=== PATIENT | male | born 1955 | race African-American/Black ===

== ENCOUNTER 2018-08-10 23:21 | Emergency (ER) | payer MEDICARE, MEDICAID ==
[~2018-08-10] VITALS: Ht 167.6 cm; Wt 80.5 kg
[~2018-08-10 23:21] MED LIST: AMLO5TAB4 PO; DOCU-186 PO; HYDR25TA6 PO; LISI40TA PO; LORA-247 PO; LOSA100T7 PO; METO-93 PO; TRAZ50TA66 PO
--- NOTE | 2018-08-10 23:37 | NUR ---
PROVIDED PT WITH FARSHAD
--- NOTE | 2018-08-10 23:57 | NUR ---
PT PRESENTED WITH C/O EDWARDS, ABD, CP AND COLD SYMPTOMS X PAST 2-3 DAYS. PT ALSO OUT OF HIS RX FOR BP X 4 DAYS. MONITORS APPLIED, SIDERAILS UP X2, CALL LIGHT WITHIN REACH. ENGINEER SECOND ASSISTANT AT BEDSIDE
[2018-08-11] MEDS ORDERED: ONDANSETRON ODT 4 MG PO ONE
[2018-08-11] MEDS ORDERED: MAALOX/HYOSCYAMINE/LIDOCAINE 45 ML BTL PO ONE
[2018-08-11 00:01] LABS: BASOPHILS # (AUTO) 0.07 x10^3/uL (0-0.1); BASOPHILS % (AUTO) 1 % (0-1); EOSINOPHILS # (AUTO) 0.08 x10^3/uL (0-0.4); EOSINOPHILS % (AUTO) 1 % (1-7); LYMPHOCYTES # (AUTO) 2.05 x10^3/uL (1-3.4); LYMPHOCYTES % (AUTO) 29 % (22-44); MD NO; MEAN CORPUSCULAR HGB CONC 32.7 g/dL (33.2-36.2); MEAN CORPUSCULAR VOLUME 94.7 fL (81-97); MEAN PLATELET VOLUME 7.8 fL (7.4-10.4); MONOCYTES # (AUTO) 0.56 x10^3/uL (0.2-0.8); MONOCYTES % (AUTO) 8 % (2-9); NEUTROPHILS # (AUTO) 4.24 x10^3/uL (1.8-6.8); NEUTROPHILS % (AUTO) 61 % (42-75); PLATELET COUNT 203 x10^3/uL (130-400); RED BLOOD COUNT 4.41 x10^6/uL (4.38-5.82); RED CELL DISTRIBUTION WIDTH 15.5 % (9.4-14.8)
[2018-08-11] MEDS ORDERED: MAALOX/HYOSCYAMINE/LIDOCAINE 45 ML BTL ONE (00:04)
[2018-08-11] MEDS ORDERED: ONDANSETRON ODT 4 MG ONE (00:05)
[2018-08-11 00:13] LABS: INTERNATIONAL NORMALIZED RATIO 1.02 (0.93-1.1); PROTHROMBIN TIME 10.8 Seconds (9.6-11.5)
[2018-08-11 00:15] LABS: ALANINE AMINOTRANSFERASE 27 U/L (12-78); ALBUMIN 3.3 g/dL (3.4-5.0); ANION GAP 6 mmol/L (5-15); CALCIUM 9.2 mg/dL (8.5-10.1); CHLORIDE 98 mmol/L (98-107); CREATININE 1.15 mg/dL (0.7-1.3)
[2018-08-11 00:17] LABS: ALKALINE PHOSPHATASE 81 U/L (45-117); TOTAL PROTEIN 8.7 g/dL (6.4-8.2)
[2018-08-11 00:19] LABS: TROPONIN I 0.034 ng/mL (0.000-0.045)
--- NOTE | 2018-08-11 00:23 | NUR ---
TASK RN: PT LAYING IN GURNEY, RESTLESS. BP/SPO2/ECG MONITORING IN PLACE. PT DENIES NEEDS AT THIS TIME
[2018-08-11 00:59] VITALS: BP 163/94
== END 2018-08-11 01:16 | disposition home or self-care (01) ==
LOC: ED 08-11 00:01
DX: J18.1 Lobar pneumonia, unspecified organism (principal); R11.2 Nausea with vomiting, unspecified; I10 Essential (primary) hypertension; Z76.0 Encounter for issue of repeat prescription; F17.200 Nicotine dependence, unspecified, uncomplicated
CPT/HCPCS: 36415; 71045; 80053; 83690; 84484; 85025; 85610; 85730; 93005; 99284; 99406; Q0162

== ENCOUNTER 2018-09-26 21:40 | Emergency (ER) | payer MEDICARE, MEDICAID ==
[~2018-09-26] VITALS: Ht 167.6 cm; Wt 82.0 kg
[~2018-09-26 21:40] MED LIST changes: +LOSA100T14 PO; -LOSA100T7 PO
[2018-09-26] MEDS ORDERED: ACETAMINOPHEN 500 MG TABLET PO ONE (22:00)
[2018-09-26] MEDS ORDERED: AMLODIPINE 5 MG TABLET PO ONE (22:00)
[2018-09-26] MEDS ORDERED: ACETAMINOPHEN 500 MG TABLET ONE (22:07)
[2018-09-26] MEDS ORDERED: AMLODIPINE 5 MG TABLET ONE (22:13)
--- NOTE | 2018-09-26 22:14 | NUR ---
MED PER ORDER, PT NEURO REMAINS INTACT.
--- NOTE | 2018-09-26 22:56 | NUR ---
PT SLEPEING QUIETLY, NAD AT THIS TIME. RESP RATE EVEN AND REGULAR, NSR MONITOR WITHOUT ECTOPY
[2018-09-26 23:02] VITALS: BP 192/107
--- NOTE | 2018-09-26 23:26 | NUR ---
PT REPORTS THAT HE IS FEELING BETTER AT THIS TIME, HEADACHE RESOLVED AWARE TO INCREASE PO FLUIDS AND TO GET RX FILLED TOMORROW AND MAKE AN APPOINTMENT WITH HIS DOCTOR.
== END 2018-09-26 23:36 | disposition home or self-care (01) ==
LOC: ED 23:00
DX: R51 Headache (principal); I10 Essential (primary) hypertension; Z91.14 Patient's other noncompliance with medication regimen; J45.909 Unspecified asthma, uncomplicated; F17.200 Nicotine dependence, unspecified, uncomplicated
CPT/HCPCS: 82962; 93005; 99283

== ENCOUNTER 2019-07-29 19:26 | Emergency (ER) | payer MEDICARE, MEDICAID ==
[~2019-07-29] VITALS: Ht 167.6 cm; Wt 69.0 kg
[2019-07-29 19:27] VITALS: BP 127/82
--- NOTE | 2019-07-29 19:36 | NUR ---
assessment made. ERP at bedside
--- NOTE | 2019-07-29 19:41 | NUR ---
patient ambulatory and disturbing the staff. security notified.
--- NOTE | 2019-07-29 19:50 | NUR ---
patient discharged by ERP. wheeled to de area. friend with patient states that he is going to call a cab. discharged with instruction. verbalized understanding.
== END 2019-07-29 19:53 | disposition home or self-care (01) ==
LOC: ED 19:30
DX: F10.129 Alcohol abuse with intoxication, unspecified (principal); Y90.9 Presence of alcohol in blood, level not specified
CPT/HCPCS: 99283

== ENCOUNTER 2019-07-30 16:03 | Emergency (ER) | payer MEDICARE, MEDICAID ==
[~2019-07-30] VITALS: Ht 167.6 cm; Wt 87.0 kg
--- NOTE | 2019-07-30 16:17 | NUR ---
ASSUMED CARE OF PATIENT. PATIENT BIB [facility] FOR LEFT SIDED CHEST PAIN 02/04. PT NOT SURE WHEN IT STARTED. PT REPORTS HE HAS BEEN DRINKING AND SMOKING MARIJUANA. FRIEND AT BEDSIDE. ACTUARY ON. NSR NOTED. VS STABLE. CALL LIGHT IN PLACE. WILL CONTINUE TO MONITOR.
--- NOTE | 2019-07-30 16:20 | NUR ---
PT DOES NOT KNOW THE NAME OF THEM MEDICATIONS HE TAKES.
[2019-07-30] MEDS ORDERED: ASPIRIN 81 MG TABLET CHEW PO ONE (16:30)
[2019-07-30] MEDS ORDERED: THIAMINE 100MG TABLET PO ONE (16:30)
[2019-07-30] MEDS ORDERED: THIAMINE 100MG TABLET ONE (16:35)
[2019-07-30] MEDS ORDERED: ASPIRIN 81 MG TABLET CHEW ONE (16:35)
[2019-07-30 16:46] LABS: BASOPHILS # (AUTO) 0.03 x10^3/uL (0-0.1); BASOPHILS % (AUTO) 1 % (0-1); EOSINOPHILS # (AUTO) 0.05 x10^3/uL (0-0.4); EOSINOPHILS % (AUTO) 1 % (1-7); LYMPHOCYTES # (AUTO) 2.57 x10^3/uL (1-3.4); LYMPHOCYTES % (AUTO) 41 % (22-44); MD NO; MEAN CORPUSCULAR HEMOGLOBIN 32.7 pg (27.5-34.5); MEAN CORPUSCULAR HGB CONC 33.1 g/dL (33.2-36.2); MEAN CORPUSCULAR VOLUME 98.7 fL (81-97); MEAN PLATELET VOLUME 6.8 fL (7.4-10.4); MONOCYTES # (AUTO) 0.31 x10^3/uL (0.2-0.8); MONOCYTES % (AUTO) 5 % (2-9); NEUTROPHILS # (AUTO) 3.31 x10^3/uL (1.8-6.8); NEUTROPHILS % (AUTO) 53 % (42-75); PLATELET COUNT 276 x10^3/uL (130-400); RED CELL DISTRIBUTION WIDTH 15.5 % (9.4-14.8)
[2019-07-30 16:53] LABS: ALBUMIN 3.5 g/dL (3.4-5.0); ANION GAP 5 mmol/L (5-15); CALCIUM 8.4 mg/dL (8.5-10.1); CHLORIDE 113 mmol/L (98-107)
[2019-07-30 16:57] LABS: TROPONIN I < 0.015 ng/mL (0.000-0.045)
--- NOTE | 2019-07-30 17:09 | NUR ---
PT VISITING WITH FRIEND IN ROOM. LEGAL RECEPTIONIST ON. NSR NOTED. CALL LIGHT IN PLACE. WILL CONTNIUE TO MONITOR.
--- NOTE | 2019-07-30 17:19 | NUR ---
DR CASTRO HAS UPDATED PATIENT. PATIENT TO BE DISCHARGED. VS STABLE. PT IS ABLE TO GET SELF DRESS AND AMBULATE AROUND ROOM SAFELY. FRIEND IS WITH PATIENT. PT DISCHARGED PER DR CASTRO.
[2019-07-30 17:30] VITALS: BP 124/75
--- NOTE | 2019-07-30 17:31 | NUR ---
NO REPEAT EKG PER DR CASTRO
== END 2019-07-30 17:33 | disposition home or self-care (01) ==
LOC: ED 17:10
DX: R07.89 Other chest pain (principal); I12.9 Hypertensive chronic kidney disease with stage 1 through stage 4 chronic kidney disease, or unspecified chronic kidney disease; N18.2 Chronic kidney disease, stage 2 (mild); F10.10 Alcohol abuse, uncomplicated; J45.909 Unspecified asthma, uncomplicated; F17.200 Nicotine dependence, unspecified, uncomplicated
CPT/HCPCS: 36415; 71045; 80048; 82040; 84484; 85025; 93005; 99284

== ENCOUNTER 2019-08-08 21:07 | Emergency (ER) | payer MEDICARE, MEDICAID ==
[~2019-08-08] VITALS: Ht 167.6 cm; Wt 80.3 kg
[2019-08-08 21:38] VITALS: BP 188/115
[2019-08-08] MEDS ORDERED: AMLODIPINE 5 MG TABLET ONE (21:43)
[2019-08-08 21:55] LABS: BASOPHILS # (AUTO) 0.04 x10^3/uL (0-0.1); BASOPHILS % (AUTO) 1 % (0-1); EOSINOPHILS # (AUTO) 0.05 x10^3/uL (0-0.4); EOSINOPHILS % (AUTO) 1 % (1-7); LYMPHOCYTES # (AUTO) 1.85 x10^3/uL (1-3.4); LYMPHOCYTES % (AUTO) 35 % (22-44); MD NO; MEAN CORPUSCULAR HEMOGLOBIN 32.1 pg (27.5-34.5); MEAN CORPUSCULAR HGB CONC 32.4 g/dL (33.2-36.2); MEAN CORPUSCULAR VOLUME 99.1 fL (81-97); MEAN PLATELET VOLUME 7.7 fL (7.4-10.4); MONOCYTES % (AUTO) 6 % (2-9); NEUTROPHILS # (AUTO) 3.02 x10^3/uL (1.8-6.8); NEUTROPHILS % (AUTO) 57 % (42-75); PLATELET COUNT 152 x10^3/uL (130-400); RED BLOOD COUNT 4.31 x10^6/uL (4.38-5.82); RED CELL DISTRIBUTION WIDTH 15.6 % (9.4-14.8)
--- NOTE | 2019-08-08 21:58 | NUR ---
REPORT RECEIVED FROM ANUJ STARKEY.
[2019-08-08] MEDS ORDERED: AMLODIPINE 5 MG TABLET PO ONE (22:00)
[2019-08-08 22:05] LABS: ANION GAP 11 mmol/L (5-15); CALCIUM 8.5 mg/dL (8.5-10.1); CHLORIDE 107 mmol/L (98-107); CREATININE 0.94 mg/dL (0.7-1.3)
[2019-08-08 22:06] LABS: ALANINE AMINOTRANSFERASE 38 U/L (12-78); ALBUMIN 3.8 g/dL (3.4-5.0)
[2019-08-08 22:08] LABS: ALKALINE PHOSPHATASE 71 U/L (45-117); BILIRUBIN,TOTAL 0.4 mg/dL (0.2-1.0); TOTAL PROTEIN 7.9 g/dL (6.4-8.2)
[2019-08-08] MEDS ORDERED: POTASSIUM CHLORIDE 20 MEQ TAB.ER.PRT ONE (22:42)
[2019-08-08] MEDS ORDERED: POTASSIUM CHLORIDE 20 MEQ TAB.ER.PRT PO ONE (23:00)
== END 2019-08-08 22:53 | disposition home or self-care (01) ==
LOC: ED 22:28
DX: F10.20 Alcohol dependence, uncomplicated (principal); Y90.9 Presence of alcohol in blood, level not specified; I10 Essential (primary) hypertension; J45.909 Unspecified asthma, uncomplicated; F17.200 Nicotine dependence, unspecified, uncomplicated
CPT/HCPCS: 36415; 80053; 80307; 83735; 85025; 99283

== ENCOUNTER 2019-08-09 21:31 | Emergency (ER) | payer MEDICARE, MEDICAID ==
[~2019-08-09] VITALS: Ht 167.6 cm; Wt 82.0 kg
--- NOTE | 2019-08-09 21:45 | NUR ---
EKG done. patient to X ray.
[2019-08-09] MEDS ORDERED: ASPIRIN 81 MG TABLET CHEW ONE (21:59)
[2019-08-09] MEDS ORDERED: ASPIRIN 81 MG TABLET CHEW PO ONE (22:00)
[2019-08-09 22:15] LABS: BASOPHILS # (AUTO) 0.02 x10^3/uL (0-0.1); BASOPHILS % (AUTO) 1 % (0-1); EOSINOPHILS # (AUTO) 0.11 x10^3/uL (0-0.4); EOSINOPHILS % (AUTO) 2 % (1-7); LYMPHOCYTES # (AUTO) 1.66 x10^3/uL (1-3.4); LYMPHOCYTES % (AUTO) 34 % (22-44); MD NO; MEAN CORPUSCULAR HEMOGLOBIN 32.4 pg (27.5-34.5); MEAN CORPUSCULAR VOLUME 98.2 fL (81-97); MONOCYTES # (AUTO) 0.24 x10^3/uL (0.2-0.8); MONOCYTES % (AUTO) 5 % (2-9); NEUTROPHILS # (AUTO) 2.89 x10^3/uL (1.8-6.8); NEUTROPHILS % (AUTO) 59 % (42-75); PLATELET COUNT 145 x10^3/uL (130-400)
[2019-08-09 22:27] LABS: ALANINE AMINOTRANSFERASE 39 U/L (12-78); ALBUMIN 3.8 g/dL (3.4-5.0); ANION GAP 10 mmol/L (5-15); CHLORIDE 106 mmol/L (98-107); CREATININE 1.12 mg/dL (0.7-1.3)
[2019-08-09 22:29] LABS: ALKALINE PHOSPHATASE 75 U/L (45-117); BILIRUBIN,TOTAL 0.5 mg/dL (0.2-1.0); TOTAL PROTEIN 7.8 g/dL (6.4-8.2); TROPONIN I 0.039 ng/mL (0.000-0.045)
--- NOTE | 2019-08-09 23:13 | NUR ---
Patient/Caregiver given discharge instructions and they have confirmed that they understand the instructions. Patient ambulatory with steady gait.
[2019-08-09 23:16] VITALS: BP 152/82
== END 2019-08-10 00:07 | disposition home or self-care (01) ==
LOC: ED 23:13
DX: R07.89 Other chest pain (principal); F10.229 Alcohol dependence with intoxication, unspecified; F17.210 Nicotine dependence, cigarettes, uncomplicated; I10 Essential (primary) hypertension; Y90.9 Presence of alcohol in blood, level not specified
CPT/HCPCS: 36415; 71046; 80053; 83880; 84484; 85025; 93005; 99284

== ENCOUNTER 2019-10-31 21:09 | Emergency (ER) | payer MEDICARE, MEDICAID ==
--- NOTE | 2019-10-31 21:17 | NUR ---
PT TAKEN TO BATHROOM BY BEATER ROOM SUPERVISOR WITH STANDBY ASSIST DUE TO LEVEL OF INTOXICATION.
--- NOTE | 2019-10-31 21:28 | NUR ---
PT ASSISTED BACK TO NURSES STATION, SEATED IN CHAIR WITHIN VIEW OF STAFF FOR SAFETY. PT TOO INTOXICATED TO CARE FOR SELF AND NO SITTERS AVAILABLE AT THIS TIME AND SUCH MULTIPLE STAFF MEMBERS ARE WATCHING PT FOR SAFETY
--- NOTE | 2019-10-31 22:00 | NUR ---
PT SLEEPING QUIETLY IN WHEELCHAIR WITHIN VIEW OF NURSES STATION FOR PT SAFETY.
--- NOTE | 2019-10-31 23:16 | NUR ---
NO CHANGES, SLEEPING QUIETLY, RESP RATE EVEN AND REGULAR, REMAINS WITHIN VIEW OF NURSES STATION FOR PT SAFETY
--- NOTE | 2019-11-01 00:03 | NUR ---
NO CHANGES, RESTING QUIETLY, AWAIT SOBRIETY FOR SAFE DISCHARGE.
--- NOTE | 2019-11-01 00:51 | NUR ---
NO CHANGES, SLEEPING QUIETLY, RESP RATE EVEN AND REGUALR, REMAINS IN CLOSE PROXIMITY TO NURSES STATION FOR SAFETY
--- NOTE | 2019-11-01 01:15 | NUR ---
SLEEPING QUIETLY, NAD, AWKANE FOR VS, AWAIT SOBRIETY FOR SAFE DISCHARGE.
[2019-11-01 01:35] VITALS: BP 132/79
--- NOTE | 2019-11-01 03:04 | NUR ---
AWAITING SOBRIETY FOR SAFE DISCHARGE
--- NOTE | 2019-11-01 04:09 | NUR ---
NO CHANGES, SLEEPING QUIETLY. AWAIT SOBRIETY FOR SAFE DISCHARGE
--- NOTE | 2019-11-01 05:02 | NUR ---
NO CHANGES, AWAIT SOBRIETY FOR SAFE DISCHARGE.
--- NOTE | 2019-11-01 06:17 | NUR ---
PT AWAKE, ALERT AND ORIENTED, AMBULATING WITH STEADY GAIT. CAB VOUCHER PROVIDED FOR SAFE DISCHARGE.
== END 2019-11-01 06:19 | disposition home or self-care (01) ==
LOC: ED 21:45
DX: F10.129 Alcohol abuse with intoxication, unspecified (principal); J45.909 Unspecified asthma, uncomplicated; I10 Essential (primary) hypertension; Y90.9 Presence of alcohol in blood, level not specified
CPT/HCPCS: 99283

== ENCOUNTER 2019-11-01 21:22 | Emergency (ER) | payer MEDICARE, MEDICAID ==
[~2019-11-01] VITALS: Ht 167.6 cm; Wt 85.0 kg
[2019-11-01 21:28] VITALS: BP 160/95
--- NOTE | 2019-11-02 01:36 | NUR ---
ASSUMED CARE OF PT, PT RESTING ON GURNEY RESPIRATIONS EVEN AND UNLABORED, FALL PRECAUTIONS IN PLACE.
--- NOTE | 2019-11-02 03:10 | NUR ---
ASSISTED PT TO RESTROOM, PT ABLE TO TOLERATE DRINKING WATER.
== END 2019-11-02 05:55 ==
LOC: ED 21:28
DX: S00.01XA Abrasion of scalp, initial encounter (principal); S09.90XA Unspecified injury of head, initial encounter; F10.120 Alcohol abuse with intoxication, uncomplicated; Z72.9 Problem related to lifestyle, unspecified; I10 Essential (primary) hypertension; F17.200 Nicotine dependence, unspecified, uncomplicated; Y90.9 Presence of alcohol in blood, level not specified; X58.XXXA Exposure to other specified factors, initial encounter; Y93.89 Activity, other specified; Y92.89 Other specified places as the place of occurrence of the external cause; Y99.8 Other external cause status
CPT/HCPCS: 36415; 70450; 80307; 99284

== ENCOUNTER 2019-11-04 08:25 | Emergency (ER) | payer MEDICARE, MEDICAID ==
[~2019-11-04] VITALS: Ht 167.6 cm; Wt 81.6 kg
[2019-11-04 08:32] VITALS: BP 116/78
[2019-11-04 09:38] LABS: BASOPHILS # (AUTO) 0.02 x10^3/uL (0-0.1); BASOPHILS % (AUTO) 0 % (0-1); EOSINOPHILS # (AUTO) 0.02 x10^3/uL (0-0.4); EOSINOPHILS % (AUTO) 0 % (1-7); LYMPHOCYTES # (AUTO) 1.12 x10^3/uL (1-3.4); LYMPHOCYTES % (AUTO) 17 % (22-44); MD NO; MEAN CORPUSCULAR HEMOGLOBIN 31.6 pg (27.5-34.5); MEAN CORPUSCULAR HGB CONC 33.2 g/dL (33.2-36.2); MEAN CORPUSCULAR VOLUME 95.1 fL (81-97); MEAN PLATELET VOLUME 7.2 fL (7.4-10.4); MONOCYTES # (AUTO) 0.35 x10^3/uL (0.2-0.8); MONOCYTES % (AUTO) 5 % (2-9); NEUTROPHILS % (AUTO) 77 % (42-75); PLATELET COUNT 204 x10^3/uL (130-400); RED BLOOD COUNT 4.23 x10^6/uL (4.38-5.82); RED CELL DISTRIBUTION WIDTH 16.1 % (9.4-14.8)
[2019-11-04 09:50] LABS: ALANINE AMINOTRANSFERASE 78 U/L (12-78); ALBUMIN 3.3 g/dL (3.4-5.0); ANION GAP 7 mmol/L (5-15); CALCIUM 8.9 mg/dL (8.5-10.1); CHLORIDE 110 mmol/L (98-107); CREATININE 1.32 mg/dL (0.7-1.3)
[2019-11-04 09:55] LABS: ALKALINE PHOSPHATASE 67 U/L (45-117); BILIRUBIN,TOTAL 0.6 mg/dL (0.2-1.0); TOTAL PROTEIN 7.3 g/dL (6.4-8.2); TROPONIN I 0.021 ng/mL (0.000-0.045)
== END 2019-11-04 10:31 | disposition home or self-care (01) ==
LOC: ED 08:52
DX: R05 Cough (principal); I11.9 Hypertensive heart disease without heart failure; R94.31 Abnormal electrocardiogram [ECG] [EKG]; R07.9 Chest pain, unspecified; R50.9 Fever, unspecified; J45.909 Unspecified asthma, uncomplicated; F17.200 Nicotine dependence, unspecified, uncomplicated; Z59.0 Homelessness
CPT/HCPCS: 36415; 71045; 80053; 83880; 84484; 85025; 93005; 99285

== ENCOUNTER 2019-11-05 18:20 | Emergency (ER) | payer MEDICARE, MEDICAID ==
[~2019-11-05] VITALS: Ht 167.6 cm; Wt 81.8 kg
[2019-11-05] MEDS ORDERED: ASPIRIN 81 MG TABLET CHEW PO ONE (18:30)
[2019-11-05] MEDS ORDERED: ASPIRIN 81 MG TABLET CHEW ONE (18:35)
--- NOTE | 2019-11-05 18:44 | NUR ---
PT TO ROOM 30 PER [facility]. PT WAS RELEASED FROM [facility] YESTERDAY FOR SAME ISSUES. PT C/O CHEST PAIN THAT HURTS ONLY WHEN PALPATED. PT HAS HAD A SMALL COUGH FROM TIME TO TIME, BUT DRANK A 1/2 PINT OF VODKA TODAY. PT IS A/O X3, VERY PLEASANT AND COOPERATIVE. PT PLACED IN GOWN, ATTACHED TO MONITOR, GIVEN WARM BLANKETS AND CALL LIGHT. EKG DONE, LAB AND XRAY TO FOLLOW. PT GIVEN 162MG OF BABY ASA, TOOK WITHOUT DIFF.
[2019-11-05 19:06] LABS: BASOPHILS # (AUTO) 0.01 x10^3/uL (0-0.1); BASOPHILS % (AUTO) 0 % (0-1); EOSINOPHILS # (AUTO) 0.09 x10^3/uL (0-0.4); EOSINOPHILS % (AUTO) 2 % (1-7); LYMPHOCYTES # (AUTO) 2.29 x10^3/uL (1-3.4); LYMPHOCYTES % (AUTO) 44 % (22-44); MD NO; MEAN CORPUSCULAR HEMOGLOBIN 31.1 pg (27.5-34.5); MEAN CORPUSCULAR HGB CONC 32.7 g/dL (33.2-36.2); MEAN CORPUSCULAR VOLUME 95.1 fL (81-97); MEAN PLATELET VOLUME 7.4 fL (7.4-10.4); MONOCYTES # (AUTO) 0.29 x10^3/uL (0.2-0.8); MONOCYTES % (AUTO) 5 % (2-9); NEUTROPHILS # (AUTO) 2.59 x10^3/uL (1.8-6.8); NEUTROPHILS % (AUTO) 49 % (42-75); PLATELET COUNT 186 x10^3/uL (130-400); RED BLOOD COUNT 4.33 x10^6/uL (4.38-5.82); RED CELL DISTRIBUTION WIDTH 16.7 % (9.4-14.8)
[2019-11-05 19:11] LABS: ALANINE AMINOTRANSFERASE 79 U/L (12-78); ALBUMIN 3.4 g/dL (3.4-5.0); ANION GAP 8 mmol/L (5-15); CHLORIDE 109 mmol/L (98-107); CREATININE 1.26 mg/dL (0.7-1.3)
[2019-11-05 19:16] LABS: ALKALINE PHOSPHATASE 75 U/L (45-117); BILIRUBIN,TOTAL 0.4 mg/dL (0.2-1.0); TOTAL PROTEIN 7.5 g/dL (6.4-8.2); TROPONIN I < 0.015 ng/mL (0.000-0.045)
--- NOTE | 2019-11-05 19:21 | NUR ---
PT REQUESTING A ROOM FOR THE NIGHT. PT STATES "I HAVE MEDICAID AND MEDICARE, CAN YOU JUST HELP ME OUT, I JUST NEED A ROOM FOR ONE NIGHT. I AM SICK, I DO HAVE CHEST PAIN, AND DIARRHEA". RN INFORMS PA OF PATIENT REQUEST.
--- NOTE | 2019-11-05 19:38 | NUR ---
DISCHARGE INSTRUCTIONS GIVEN TO PATIENT. PT SAD THAT HE CAN'T STAY, PA IN TO DISCUSS REASONS FOR DISCHARGE OPPOSED TO ADMISSION. PT UNHOOKED FROM MONITORS, AND DRESSES SELF. PT AMBULATES OUT OF ED PER PEDIS.
[2019-11-05 19:39] VITALS: BP 138/90
== END 2019-11-05 19:41 | disposition home or self-care (01) ==
LOC: ED 18:48
DX: R07.89 Other chest pain (principal); R05 Cough; F10.129 Alcohol abuse with intoxication, unspecified; F17.210 Nicotine dependence, cigarettes, uncomplicated; I10 Essential (primary) hypertension; Y90.9 Presence of alcohol in blood, level not specified
CPT/HCPCS: 36415; 71045; 80053; 83880; 84484; 85025; 93005; 99285; 99406

== ENCOUNTER 2019-11-06 18:36 | Emergency (ER) | payer MEDICARE, MEDICAID ==
[~2019-11-06] VITALS: Ht 167.6 cm; Wt 75.0 kg
[2019-11-06 18:37] VITALS: BP 137/86
[2019-11-06 19:24] LABS: TROPONIN I < 0.015 ng/mL (0.000-0.045)
--- NOTE | 2019-11-06 19:59 | NUR ---
PT ESCORTED OUT. PT AMBULATED WITH A STEADY GATE
== END 2019-11-06 20:01 | disposition home or self-care (01) ==
LOC: ED 19:04
DX: R07.89 Other chest pain (principal); F10.129 Alcohol abuse with intoxication, unspecified; R94.31 Abnormal electrocardiogram [ECG] [EKG]; F17.200 Nicotine dependence, unspecified, uncomplicated; J45.909 Unspecified asthma, uncomplicated; I10 Essential (primary) hypertension; I51.7 Cardiomegaly; Z91.14 Patient's other noncompliance with medication regimen; Z72.9 Problem related to lifestyle, unspecified; Y90.0 Blood alcohol level of less than 20 mg/100 ml
CPT/HCPCS: 36415; 80307; 84484; 93005; 99284

== ENCOUNTER 2020-01-30 05:55 | Emergency (ER) | payer MEDICARE, MEDICAID ==
[~2020-01-30] VITALS: Ht 172.7 cm; Wt 75.0 kg
[2020-01-30] MEDS ORDERED: SODIUM CHLORIDE 0.9% 1,000 ML IV ONE (06:24)
--- NOTE | 2020-01-30 06:27 | NUR ---
MEDICAL RECORDS REQUESTED FROM [facility].
[2020-01-30] MEDS ORDERED: SODIUM CHLORIDE 0.9% 1,000ML IVBOLUS ONE (06:30)
[2020-01-30 06:46] LABS: MEAN CORPUSCULAR HEMOGLOBIN 31.9 pg (27.5-34.5); MEAN CORPUSCULAR HGB CONC 32.6 g/dL (33.2-36.2); MEAN CORPUSCULAR VOLUME 97.6 fL (81-97); MEAN PLATELET VOLUME 8.3 fL (7.4-10.4); PLATELET COUNT 106 x10^3/uL (130-400); RED CELL DISTRIBUTION WIDTH 16.6 % (9.4-14.8)
--- NOTE | 2020-01-30 06:46 | NUR ---
PATIENT REPORT GIVEN TO ONCOMING RN.
--- NOTE | 2020-01-30 06:49 | NUR ---
Took report from Bren Ramos RN, assume care at this time. Pt calm in bed. All questions answered.
[2020-01-30] MEDS ORDERED: THIAMINE 100MG TABLET ONE (06:51)
[2020-01-30 06:55] LABS: ALANINE AMINOTRANSFERASE 54 U/L (12-78); ALBUMIN 3.3 g/dL (3.4-5.0); ANION GAP 4 mmol/L (5-15); CALCIUM 9.3 mg/dL (8.5-10.1); CHLORIDE 104 mmol/L (98-107); CREATININE 1.14 mg/dL (0.7-1.3)
--- NOTE | 2020-01-30 06:57 | NUR ---
REPORTS WEAKNESS AND DIZZINESS X3 DAYS AGO WAS SEEN AT [facility] AND D/C LAST NIGHT. PT REPORTS NO RELIEF FROM SYMPTOMS. ALSO REPORTS ALLERGIC RXN TO A MEDICATION HE RECEIVED, MED UNKNOWN.
--- NOTE | 2020-01-30 06:59 | NUR ---
Pt requested a diet tray. MD Tipton notified. Diet tray ordered.
[2020-01-30 07:00] LABS: ALKALINE PHOSPHATASE 65 U/L (45-117); BILIRUBIN,TOTAL 0.6 mg/dL (0.2-1.0); CREATINE KINASE, TOTAL 349 U/L (39-308); TOTAL PROTEIN 7.4 g/dL (6.4-8.2); TROPONIN I < 0.015 ng/mL (0.000-0.045)
[2020-01-30] MEDS ORDERED: THIAMINE 100MG TABLET PO ONE (07:00)
[2020-01-30 07:08] LABS: MICROSCOPIC INDICATED
[2020-01-30 07:14] LABS: MD YES
--- NOTE | 2020-01-30 07:14 | NUR ---
MRI safety screening
[2020-01-30 07:21] LABS: EOS#(MANUAL) 0.08 x10^3/uL (0.0-0.4); EOS% (MANUAL) 2 % (1-7); LYMPHS% (MANUAL) 35 % (22-44); MONOS#(MANUAL) 0.28 x10^3/uL (0.3-2.7); MONOS% (MANUAL) 7 % (2-9); SEG#(MANUAL) 2.24 x10^3/uL (1.8-6.8); SEGS% (MANUAL) 56 % (42-75)
[2020-01-30 07:22] LABS: <PLATELET ESTIMATE> DECREASED; <PLT MORPHOLOGY> NORMAL PLT MORPH; <RBC MORPHOLOGY> NORMAL
[2020-01-30] MEDS ORDERED: MAGNESIUM SULFATE PMX 2GM/50ML 50 ML IV ONE (08:00)
[2020-01-30] MEDS ORDERED: MAGNESIUM SULFATE PMX 2GM/50ML 50 ML ONE (08:27)
--- NOTE | 2020-01-30 08:35 | NUR ---
Pt ambulated with steady gait. Gave pt diet tray. Agrees to discharge after IV meds are done. Reports feeling much better.
--- NOTE | 2020-01-30 09:02 | NUR ---
WALKER GIVEN, TEACHING DONE
[2020-01-30 09:03] VITALS: BP 121/74
== END 2020-01-30 09:34 | disposition home or self-care (01) ==
LOC: ED 09:00
DX: R53.1 Weakness (principal); F10.10 Alcohol abuse, uncomplicated; E83.42 Hypomagnesemia; R94.31 Abnormal electrocardiogram [ECG] [EKG]; I10 Essential (primary) hypertension; Y90.9 Presence of alcohol in blood, level not specified
CPT/HCPCS: 36415; 70551; 71045; 80053; 81001; 82550; 83605; 83690; 83735; 84443; 84484; 85025; 87086; 93005; 99285; J7030

== ENCOUNTER 2020-02-10 21:16 | Emergency (ER) | payer MEDICARE, MEDICAID ==
--- NOTE | 2020-02-10 22:13 | NUR ---
Break rn: Pt sleeping comfortably on gurney. NADN. Rr even and unlabored. WCTM.
--- NOTE | 2020-02-11 01:11 | NUR ---
PT REQUESTING BLANKET, STATES HE IS STILL UNABLE TO AMBULATE AT THIS TIME. A&OX4, RESP EVEN AND UNLABORED. MONITORS IN PLACE. CALL LIGHT WITHIN REACH
[2020-02-11 01:12] VITALS: BP 108/72
== END 2020-02-11 01:47 | disposition home or self-care (01) ==
LOC: ED 02-11 01:15
DX: F10.120 Alcohol abuse with intoxication, uncomplicated (principal); Z72.9 Problem related to lifestyle, unspecified; J45.909 Unspecified asthma, uncomplicated; I10 Essential (primary) hypertension; Y90.9 Presence of alcohol in blood, level not specified
CPT/HCPCS: 99283

== ENCOUNTER 2020-03-01 20:26 | Emergency (ER) | payer MEDICARE, MEDICAID ==
[~2020-03-01] VITALS: Ht 172.7 cm; Wt 78.0 kg
--- NOTE | 2020-03-01 20:31 | NUR ---
Pt presents to ed from [employer] intervention. Found on sidewalk and unable to ambulate. Admits to gross etoh intoxication of "too much, obviously." Slurred speech and etoh odor noted. Neuro otherwise full intact. All monitoring applied. VSS. No other medical complaint from pt.
--- NOTE | 2020-03-01 21:31 | NUR ---
Pt sleeping comfortably on gurney. Easily rousable. Remains a+ox4.
[2020-03-01 22:08] VITALS: BP 129/89
--- NOTE | 2020-03-02 00:06 | NUR ---
Caregiver given discharge instructions and they have confirmed that they understand the instructions. Patient ambulatory with steady gait.
== END 2020-03-02 00:10 | disposition home or self-care (01) ==
LOC: ED 22:59
DX: F10.120 Alcohol abuse with intoxication, uncomplicated (principal); Y90.9 Presence of alcohol in blood, level not specified
CPT/HCPCS: 99283

== ENCOUNTER 2020-04-24 15:20 | Emergency (ER) | payer MEDICARE, MEDICAID ==
[~2020-04-24] VITALS: Ht 167.6 cm; Wt 75.0 kg
[2020-04-24 15:26] VITALS: BP 138/85
--- NOTE | 2020-04-24 15:30 | NUR ---
DANIEL WHITE FROM [facility]. PT FOUND LAYING ON GROUND. A&OX4, GCS 15. PT SEEN AT [facility] THIS AM. +ETOH. PT STATES HE FELL, UNKNOWN OF EXACTLY WHEN. PT HAS MINIMAL BLOOD AROUND NOSE. PT POOR HISTORIAN. PT CONNECTED TO MONITORING. CALL LIGHT AND URINAL IN REACH.
--- NOTE | 2020-04-24 16:27 | NUR ---
ALL RESULTS ARE BACK AT THIS TIME. CHART UP FOR RECHECK.
--- NOTE | 2020-04-24 16:34 | NUR ---
PER PROVIDER, PT TO BE MTF.
--- NOTE | 2020-04-24 17:13 | NUR ---
PT SLEEPING ON GURNEY. RESP EVEN AND UNLABORED. VERONICA.
== END 2020-04-24 19:38 | disposition home or self-care (01) ==
LOC: ED 17:02
DX: F10.120 Alcohol abuse with intoxication, uncomplicated (principal); F17.200 Nicotine dependence, unspecified, uncomplicated; J45.909 Unspecified asthma, uncomplicated; I10 Essential (primary) hypertension; Y90.9 Presence of alcohol in blood, level not specified; Z59.0 Homelessness; W01.0XXA Fall on same level from slipping, tripping and stumbling without subsequent striking against object, initial encounter; Y93.89 Activity, other specified; Y92.481 Parking lot as the place of occurrence of the external cause; Y99.8 Other external cause status
CPT/HCPCS: 36415; 70450; 71046; 72125; 80053; 84484; 85025; 93005; 99285; 99406

== ENCOUNTER 2020-04-24 21:34 | Emergency (ER) | payer MEDICARE, MEDICAID ==
[~2020-04-24] VITALS: Ht 167.6 cm; Wt 77.0 kg
[2020-04-24 21:41] VITALS: BP 162/99
--- NOTE | 2020-04-24 21:45 | NUR ---
PT BIB EMS FOR 10 CP ON THE LEFT SIDE OF HIS CHEST. PT WAS DCd FROM ER 2 HOURS FOR NECK PAIN. PT STATES HE HAS HAD THIS CP FOR 2-3 DAYS. PT ADMITS TO DRINKING A PINT OF VODKA TODAY. PT RESTING IN [facility]. CONNECTED TO MONITORING EQUIPMENT. EKG COMPLETE.
[2020-04-24 21:58] LABS: BASOPHILS # (AUTO) 0.03 x10^3/uL (0-0.1); BASOPHILS % (AUTO) 1 % (0-1); EOSINOPHILS # (AUTO) 0.04 x10^3/uL (0-0.4); EOSINOPHILS % (AUTO) 1 % (1-7); LYMPHOCYTES # (AUTO) 1.95 x10^3/uL (1-3.4); LYMPHOCYTES % (AUTO) 38 % (22-44); MD NO; MEAN CORPUSCULAR HEMOGLOBIN 32.5 pg (27.5-34.5); MEAN CORPUSCULAR HGB CONC 32.6 g/dL (33.2-36.2); MEAN PLATELET VOLUME 7.2 fL (7.4-10.4); MONOCYTES # (AUTO) 0.37 x10^3/uL (0.2-0.8); MONOCYTES % (AUTO) 7 % (2-9); NEUTROPHILS # (AUTO) 2.74 x10^3/uL (1.8-6.8); NEUTROPHILS % (AUTO) 54 % (42-75); PLATELET COUNT 270 x10^3/uL (130-400); RED BLOOD COUNT 4.12 x10^6/uL (4.38-5.82); RED CELL DISTRIBUTION WIDTH 16.2 % (9.4-14.8)
--- NOTE | 2020-04-24 22:00 | NUR ---
REPORT FROM ANUJ MARINO. PT LAYING IN BED CONNECTED TO CARDIAC, BP AND O2 MONITORS. NADN. CALL LIGHT IN REACH, VISITOR AT BEDSIDE.
[2020-04-24 22:02] LABS: ALANINE AMINOTRANSFERASE 33 U/L (12-78); ALBUMIN 3.6 g/dL (3.4-5.0); ANION GAP 8 mmol/L (5-15); CALCIUM 9.1 mg/dL (8.5-10.1); CHLORIDE 109 mmol/L (98-107); CREATININE 1.51 mg/dL (0.7-1.3)
[2020-04-24 22:07] LABS: ALKALINE PHOSPHATASE 62 U/L (45-117); BILIRUBIN,TOTAL 0.4 mg/dL (0.2-1.0); TOTAL PROTEIN 7.4 g/dL (6.4-8.2); TROPONIN I 0.018 ng/mL (0.000-0.045)
--- NOTE | 2020-04-24 22:34 | NUR ---
PT'S VISITOR LAYING IN GURNEY WITH HIM. MUSIC PLAYING. MONICAN. PT ABLE TO DRESS SELF FOR D/C.
== END 2020-04-24 22:36 | disposition home or self-care (01) ==
LOC: ED 22:00
DX: R07.2 Precordial pain (principal); R94.31 Abnormal electrocardiogram [ECG] [EKG]; I10 Essential (primary) hypertension; J45.909 Unspecified asthma, uncomplicated; F17.210 Nicotine dependence, cigarettes, uncomplicated; Z72.9 Problem related to lifestyle, unspecified
CPT/HCPCS: 36415; 71046; 80053; 84484; 85025; 93005; 99285; 99406

== ENCOUNTER 2020-04-25 08:30 | Emergency (ER) | payer MEDICARE, MEDICAID ==
[~2020-04-25] VITALS: Ht 170.2 cm; Wt 70.0 kg
[2020-04-25 08:34] VITALS: BP 176/106
== END 2020-04-25 09:47 | disposition home or self-care (01) ==
LOC: ED 08:53
DX: H11.32 Conjunctival hemorrhage, left eye (principal); I10 Essential (primary) hypertension; F17.210 Nicotine dependence, cigarettes, uncomplicated
CPT/HCPCS: 99283

== ENCOUNTER 2020-05-05 14:35 | Emergency (ER) | payer MEDICARE, MEDICAID ==
[~2020-05-05] VITALS: Ht 167.6 cm; Wt 81.0 kg
--- NOTE | 2020-05-05 14:49 | NUR ---
BIB [facility] for ETOH. Found down on [address] corner. Pt AO X 2, VS WNL.
--- NOTE | 2020-05-05 16:21 | NUR ---
Pt sleeping, sobering up for DC
--- NOTE | 2020-05-05 17:34 | NUR ---
Pt road tested, ambulates well, provided with snack prior to DC
[2020-05-05 17:40] VITALS: BP 143/94
== END 2020-05-05 17:43 | disposition home or self-care (01) ==
LOC: ED 15:32
DX: F10.229 Alcohol dependence with intoxication, unspecified (principal); R41.82 Altered mental status, unspecified; F17.210 Nicotine dependence, cigarettes, uncomplicated; Y90.0 Blood alcohol level of less than 20 mg/100 ml
CPT/HCPCS: 99283; 99406

== ENCOUNTER 2020-05-06 12:47 | Emergency (ER) | payer MEDICARE, MEDICAID ==
[~2020-05-06] VITALS: Ht 182.9 cm; Wt 90.9 kg
[2020-05-06 12:52] VITALS: BP 134/88
--- NOTE | 2020-05-06 12:52 | NUR ---
+ETOH "A COUPLE BEERS TODAY". NO OTHER SX. NON AMBULATORY W/O ASSISTANCE. PT RESTING ON GURNEY. NADN. MONITORS IN PLACE.
== END 2020-05-06 13:41 | disposition home or self-care (01) ==
LOC: ED 13:35
DX: F10.120 Alcohol abuse with intoxication, uncomplicated (principal); I10 Essential (primary) hypertension; J45.909 Unspecified asthma, uncomplicated; Y90.0 Blood alcohol level of less than 20 mg/100 ml
CPT/HCPCS: 99283

== ENCOUNTER 2020-05-08 23:04 | Emergency (ER) | payer MEDICARE, MEDICAID ==
[~2020-05-08] VITALS: Ht 167.6 cm; Wt 73.0 kg
--- NOTE | 2020-05-08 23:16 | NUR ---
pt BIB [facility] after being found on the ground on [address] tonight. pre reports, pt states to CINDY that he fell "on his rump" that he has heavy ETOH consumption tonight and that he is having L sided CP. pt is in no resp. distress. speaking full sentences. Dr. Leigh has been to bedside for eval report to Abdulkadir LESLIE
--- NOTE | 2020-05-08 23:26 | NUR ---
blood draw and sent to lab. X ray at bedside.
[2020-05-08 23:41] LABS: ALBUMIN 3.9 g/dL (3.4-5.0); ANION GAP 9 mmol/L (5-15); CHLORIDE 107 mmol/L (98-107)
[2020-05-08 23:45] LABS: TROPONIN I 0.021 ng/mL (0.000-0.045)
[2020-05-08 23:46] LABS: BASOPHILS % (AUTO) 1 % (0-1); EOSINOPHILS % (AUTO) 0 % (1-7); LYMPHOCYTES % (AUTO) 47 % (22-44); MEAN CORPUSCULAR HEMOGLOBIN 32.9 pg (27.5-34.5); MEAN PLATELET VOLUME 7.3 fL (7.4-10.4); MONOCYTES % (AUTO) 6 % (2-9); NEUTROPHILS % (AUTO) 46 % (42-75); PLATELET COUNT 195 x10^3/uL (130-400); RED BLOOD COUNT 4.19 x10^6/uL (4.38-5.82); RED CELL DISTRIBUTION WIDTH 16.2 % (9.4-14.8)
--- NOTE | 2020-05-08 23:52 | NUR ---
patient sleeping, respiration unlabored.
--- NOTE | 2020-05-09 00:29 | NUR ---
float rn; pt sleeping, rr even. on monitors, side rails up .
[2020-05-09 01:01] LABS: MD SCAN
--- NOTE | 2020-05-09 01:46 | NUR ---
no changes, patient sleeping. respiration unlabored. will continue to monitor.
--- NOTE | 2020-05-09 03:15 | NUR ---
no changes. patient sleeping, VSS
[2020-05-09 05:06] VITALS: BP 127/85
--- NOTE | 2020-05-09 05:06 | NUR ---
patient awake and alert. discharged with steady gait. instruction given. verbalized understanding.
== END 2020-05-09 05:10 | disposition home or self-care (01) ==
LOC: ED 05-09 01:15
DX: R07.89 Other chest pain (principal); F10.120 Alcohol abuse with intoxication, uncomplicated; Z72.9 Problem related to lifestyle, unspecified; I10 Essential (primary) hypertension; J45.909 Unspecified asthma, uncomplicated; Y90.9 Presence of alcohol in blood, level not specified
CPT/HCPCS: 36415; 71045; 80048; 80307; 82040; 84484; 85025; 93005; 99284; 99285

== ENCOUNTER 2020-05-29 07:05 | Emergency (ER) | payer MEDICARE, MEDICAID ==
[~2020-05-29] VITALS: Ht 167.6 cm; Wt 80.0 kg
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
[2020-05-29 07:59] LABS: BASOPHILS % (AUTO) 1 % (0-1); EOSINOPHILS % (AUTO) 1 % (1-7); LYMPHOCYTES % (AUTO) 37 % (22-44); MEAN CORPUSCULAR HEMOGLOBIN 32.6 pg (27.5-34.5); MEAN CORPUSCULAR HGB CONC 33.2 g/dL (33.2-36.2); MEAN PLATELET VOLUME 7.1 fL (7.4-10.4); MONOCYTES % (AUTO) 6 % (2-9); NEUTROPHILS % (AUTO) 55 % (42-75); PLATELET COUNT 314 x10^3/uL (130-400); RED BLOOD COUNT 3.82 x10^6/uL (4.38-5.82); RED CELL DISTRIBUTION WIDTH 15.5 % (9.4-14.8)
[2020-05-29 08:06] LABS: ALANINE AMINOTRANSFERASE 23 U/L (12-78); ALBUMIN 3.4 g/dL (3.4-5.0); ANION GAP 8 mmol/L (5-15); CALCIUM 8.7 mg/dL (8.5-10.1); CHLORIDE 112 mmol/L (98-107); CREATININE 1.31 mg/dL (0.7-1.3)
[2020-05-29 08:11] LABS: ALKALINE PHOSPHATASE 85 U/L (45-117); BILIRUBIN,TOTAL 0.1 mg/dL (0.2-1.0); TOTAL PROTEIN 7.1 g/dL (6.4-8.2)
[2020-05-29 08:17] VITALS: BP 138/89
[2020-05-29 08:31] LABS: MD SCAN
--- NOTE | 2020-05-29 08:45 | NUR ---
PT AMBULATED OUT SAFELY WITH STEADY GAIT. FRIEND OUT FRONT TO TAKE PT HOME SAFELY.
[2020-05-29 08:47] LABS: AMPHETAMINE SCREEN, URINE Negative (Negative); BARBITURATE SCREEN, URINE Negative (Negative); BENZODIAZEPINE SCREEN, URINE Negative (Negative); CANNABINOID SCREEN, URINE Negative (Negative); COCAINE SCREEN, URINE Negative (Negative); METHADONE SCREEN, URINE Negative (Negative); OPIATE SCREEN, URINE Negative (Negative)
== END 2020-05-29 08:48 | disposition home or self-care (01) ==
LOC: ED 08:42
DX: S09.90XA Unspecified injury of head, initial encounter (principal); I12.9 Hypertensive chronic kidney disease with stage 1 through stage 4 chronic kidney disease, or unspecified chronic kidney disease; N18.2 Chronic kidney disease, stage 2 (mild); F10.220 Alcohol dependence with intoxication, uncomplicated; D64.9 Anemia, unspecified; Z88.0 Allergy status to penicillin; Y90.9 Presence of alcohol in blood, level not specified; W18.30XA Fall on same level, unspecified, initial encounter; Y93.89 Activity, other specified; Y92.89 Other specified places as the place of occurrence of the external cause; Y99.8 Other external cause status
CPT/HCPCS: 36415; 70450; 72125; 80053; 80307; 85025; 99285

== ENCOUNTER 2020-06-02 16:35 | Emergency (ER) | payer MEDICARE, MEDICAID ==
[~2020-06-02] VITALS: Ht 167.6 cm; Wt 82.0 kg
[2020-06-02 16:39] VITALS: BP 144/93
--- NOTE | 2020-06-02 16:46 | NUR ---
EKG DONE IN TRIAGE
--- NOTE | 2020-06-02 17:47 | NUR ---
PT VISUALIZED WALKING OUT
== END 2020-06-02 17:49 | disposition left against medical advice (07) ==
LOC: ED 17:30
DX: R07.89 Other chest pain (principal); F10.10 Alcohol abuse, uncomplicated; R06.02 Shortness of breath; Z53.21 Procedure and treatment not carried out due to patient leaving prior to being seen by health care provider; Y90.0 Blood alcohol level of less than 20 mg/100 ml
CPT/HCPCS: 93005

== ENCOUNTER 2020-06-03 08:19 | Emergency (ER) | payer MEDICARE, MEDICAID ==
[~2020-06-03] VITALS: Ht 167.6 cm; Wt 84.0 kg
[2020-06-03 09:40] VITALS: BP 157/95
--- NOTE | 2020-06-03 10:27 | NUR ---
PT AMBULATORY W/ A STEADY GAIT. RESP EVEN AND UNLABORED, NADN.
--- NOTE | 2020-06-03 10:46 | NUR ---
Patient given discharge instructions and they have confirmed that they understand the instructions. Patient ambulatory with steady gait.
== END 2020-06-03 10:47 | disposition home or self-care (01) ==
LOC: ED 09:51
DX: S09.90XA Unspecified injury of head, initial encounter (principal); F10.220 Alcohol dependence with intoxication, uncomplicated; I10 Essential (primary) hypertension; J45.909 Unspecified asthma, uncomplicated; Z76.0 Encounter for issue of repeat prescription; Y90.0 Blood alcohol level of less than 20 mg/100 ml; X58.XXXA Exposure to other specified factors, initial encounter; Y93.89 Activity, other specified; Y92.89 Other specified places as the place of occurrence of the external cause; Y99.8 Other external cause status
CPT/HCPCS: 70450; 99284

== ENCOUNTER 2020-06-30 22:31 | Emergency (ER) | payer MEDICARE, MEDICAID ==
[~2020-06-30] VITALS: Ht 167.6 cm; Wt 80.0 kg
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
[2020-06-30] MEDS ORDERED: LISINOPRIL 20 MG TABLET PO ONE (23:00)
[2020-06-30] MEDS ORDERED: AMLODIPINE 5 MG TABLET PO/NG ONE (23:00)
[2020-06-30] MEDS ORDERED: LISINOPRIL 20 MG TABLET ONE (23:01)
[2020-06-30] MEDS ORDERED: AMLODIPINE 5 MG TABLET ONE (23:01)
--- NOTE | 2020-06-30 23:28 | NUR ---
PATIENT RESTING IN GURNEY WITH EYES CLOSED, RESPIRATIONS EVEN AND UNLABORED, CONNECTED TO STAVE PLANER TENDER, SIDE RAILS UP X2, CALL LIGHT WITHIN REACH.
--- NOTE | 2020-07-01 00:01 | NUR ---
bedside report from garcia hercules, pt care transferred at this time. pt resting on gurney, nad, appears comfortable, eyes closed, even and unlabored respirations. wctm. mtf
--- NOTE | 2020-07-01 01:30 | NUR ---
LATE ENTRY D/T PT CARE: PT AMBULATED TO BATHROOM, SLIGHTLY UNSTEADY. ASSISTED BACK TO BED, NAD, MTF, WCTM
--- NOTE | 2020-07-01 02:37 | NUR ---
PT RESTING ON GURNEY, NAD, APPEARS COMFORTABLE, NO CHANGE IN CONDITION, EVEN AND UNLABORED RESPIRATIONS. MTF, WCTM.
[2020-07-01 04:40] VITALS: BP 138/86
--- NOTE | 2020-07-01 04:42 | NUR ---
Patient given discharge instructions and they have confirmed that they understand the instructions. Patient ambulatory with steady gait. NAD, OFFERED PT TAXI OR BUS PASS AND PT CHOSE BUS PASS. PT NAD, DENIES ADDITIONAL QUESTIONS OR NEEDS. NO PERSONAL BELONGINGS LEFT IN ROOM AT DE.
== END 2020-07-01 04:43 | disposition home or self-care (01) ==
LOC: ED 23:15
DX: F10.120 Alcohol abuse with intoxication, uncomplicated (principal); I10 Essential (primary) hypertension; Z72.9 Problem related to lifestyle, unspecified; Z76.0 Encounter for issue of repeat prescription; Y90.0 Blood alcohol level of less than 20 mg/100 ml
CPT/HCPCS: 99285

== ENCOUNTER 2020-07-01 15:33 | Emergency (ER) | payer MEDICARE, MEDICAID ==
[~2020-07-01] VITALS: Ht 172.7 cm; Wt 80.0 kg
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
--- NOTE | 2020-07-01 16:10 | NUR ---
PT FOUND WALKING AROUND IN ROOM. REDIRCTED TO SAMEERA MC REQUESTED FROM PRESS OPERATOR APPRENTICE. RESP EVEN AND UNLABORED, VERONICA.
[2020-07-01 16:13] LABS: BASOPHILS % (AUTO) 1 % (0-1); EOSINOPHILS % (AUTO) 0 % (1-7); LYMPHOCYTES % (AUTO) 34 % (22-44); MEAN CORPUSCULAR HGB CONC 32.5 g/dL (33.2-36.2); MEAN PLATELET VOLUME 7.4 fL (7.4-10.4); MONOCYTES % (AUTO) 7 % (2-9); NEUTROPHILS % (AUTO) 57 % (42-75); PLATELET COUNT 253 x10^3/uL (130-400); RED BLOOD COUNT 4.31 x10^6/uL (4.38-5.82); RED CELL DISTRIBUTION WIDTH 16.7 % (9.4-14.8)
[2020-07-01 16:17] LABS: MD NO
[2020-07-01 16:23] LABS: ANION GAP 8 mmol/L (5-15); CALCIUM 8.8 mg/dL (8.5-10.1); CHLORIDE 112 mmol/L (98-107); CREATININE 1.18 mg/dL (0.7-1.3)
[2020-07-01 16:37] VITALS: BP 146/90
--- NOTE | 2020-07-01 16:50 | NUR ---
PT SLEEPING ON GURNEY W/ CALL LIGHT IN REACH AND SIDE RAILS UPX2. AMELIAS, VERONICA.
--- NOTE | 2020-07-01 18:18 | NUR ---
PT SLEEPING ON GURNEY W/ CALL LIGHT IN REACH AND SIDE RAILS UPX2. AMELIAS, VERONICA.
--- NOTE | 2020-07-01 19:03 | NUR ---
BEDSIDE REPORT FROM ANUJ FAYE. PT AWAKE WITH VERBAL STIMULI. VSS.
== END 2020-07-01 20:00 | disposition home or self-care (01) ==
LOC: ED 16:05
DX: F10.229 Alcohol dependence with intoxication, unspecified (principal); I10 Essential (primary) hypertension; E11.9 Type 2 diabetes mellitus without complications; F17.210 Nicotine dependence, cigarettes, uncomplicated; J45.909 Unspecified asthma, uncomplicated; Y90.0 Blood alcohol level of less than 20 mg/100 ml
CPT/HCPCS: 80048; 80320; 82962; 85025; 93005; 99284; 99406; G0480

== ENCOUNTER 2020-07-06 21:27 | Emergency (ER) | payer MEDICARE, MEDICAID ==
[~2020-07-06] VITALS: Ht 167.6 cm; Wt 88.0 kg
--- NOTE | 2020-07-06 22:46 | NUR ---
PT SLEEPING. EQUAL BREATHING SOUNDS. 91% RA. WCTM.
--- NOTE | 2020-07-06 23:24 | NUR ---
PT ABLE TO AMBULATE IN [place]. VSS. PT TBDC.
[2020-07-06 23:25] VITALS: BP 165/104
--- NOTE | 2020-07-07 00:07 | NUR ---
PT AMBULATORY. VSS. TAXI VOUCHURE GIVEN FOR SAFE DISCHARGE.
== END 2020-07-07 00:08 | disposition home or self-care (01) ==
LOC: ED 22:07
DX: F10.120 Alcohol abuse with intoxication, uncomplicated (principal); Z72.9 Problem related to lifestyle, unspecified; F17.210 Nicotine dependence, cigarettes, uncomplicated; I10 Essential (primary) hypertension; E11.9 Type 2 diabetes mellitus without complications; Y90.0 Blood alcohol level of less than 20 mg/100 ml
CPT/HCPCS: 99281; 99406

== ENCOUNTER 2020-08-01 20:27 | Emergency (ER) | payer MEDICARE, MEDICAID ==
[~2020-08-01] VITALS: Ht 172.7 cm; Wt 69.5 kg
[2020-08-01 20:41] VITALS: BP 152/98
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
--- NOTE | 2020-08-01 21:07 | NUR ---
TO CT, XR
--- NOTE | 2020-08-01 21:52 | NUR ---
PT BACK IN ROOM FROM CT AND XRAY. PT CONFUSED, AOX1. PT REMOVED ALL PT. CARE EQUIPTMENT. MONITORS RECONNECTED. PT EDUCATED TO KEEP ALL EQUIPTMENT IN PLACE.
--- NOTE | 2020-08-01 22:32 | NUR ---
PT YELLING AT FRIEND IN ROOM WITH SMELL OF SMOKE COMING FROM THE ROOM. PT WALKING AROUND THE ROOM SMOKING RN WALKED IN ROOM WITH PT FRIEND SITTING IN CHAIR. PT WAS TOLD TO PUT IT OUT AND PT SAID "HE WAS READY TO LEAVE AND STARTED TO GRAB HIS BELONGINGS" SECURITY CALLED TO ESCORT PT TO LOBBY TO PREVENT PT FROM SMOKING IN [facility].
== END 2020-08-01 22:35 | disposition home or self-care (01) ==
LOC: ED 21:45
DX: S09.90XA Unspecified injury of head, initial encounter (principal); F10.129 Alcohol abuse with intoxication, unspecified; Z72.9 Problem related to lifestyle, unspecified; I48.92 Unspecified atrial flutter; R51.9 Headache, unspecified; Y90.0 Blood alcohol level of less than 20 mg/100 ml; W18.30XA Fall on same level, unspecified, initial encounter; Y93.89 Activity, other specified; Y92.89 Other specified places as the place of occurrence of the external cause; Y99.8 Other external cause status
CPT/HCPCS: 70450; 72110; 93005; 99284; 99285

== ENCOUNTER 2020-08-02 14:07 | Emergency (ER) | payer MEDICARE, MEDICAID ==
[~2020-08-02] VITALS: Ht 177.8 cm; Wt 75.0 kg
[2020-08-02 16:11] VITALS: BP 128/88
--- NOTE | 2020-08-02 17:43 | NUR ---
TASK RN: PT RESTING IN [place] MC NOTED. EVEN/REGULAR RESPIRATIONS NOTED. PT EASILY ARROUSABLE BY VOICE. AMBULATED WITH STANDBY ASSISTANCE TO RESTROOM. PT IN WHEELCHAIR AND PROVIDED PO FOOD/FLUIDS PRIOR TO DC.
--- NOTE | 2020-08-02 18:01 | NUR ---
TASK RN: PT A&OX4 AND AMBULATORY WO ASSISTANCE. PT DRESSED SELF, CLOTHING APPROPRIATE FOR WEATHER. PT IN WHEELCHAIR AND WHEELED TO DC. TAXI VOUCHER PROVIDED FOR SAFE TRANSPORT TO CUSTODIAL.
== END 2020-08-02 18:04 | disposition home or self-care (01) ==
LOC: ED 16:18
DX: F10.132 Alcohol abuse with withdrawal with perceptual disturbance (principal); G92 Toxic encephalopathy; I10 Essential (primary) hypertension; E11.9 Type 2 diabetes mellitus without complications; Y90.0 Blood alcohol level of less than 20 mg/100 ml
CPT/HCPCS: 99283

== ENCOUNTER 2020-08-07 16:42 | Emergency (ER) | payer MEDICARE, MEDICAID ==
[~2020-08-07] VITALS: Ht 167.6 cm; Wt 74.0 kg
--- NOTE | 2020-08-07 16:52 | NUR ---
BIB EMS FROM OUTSIDE THE [facility]. C/O TRANSIENT SUBSTERNAL CENTRAL CP, NON RADIATING "FOR PAST FEW DAYS" PER EMS PT WAS SEEN YESTERDAY AT [facility] FOR SAME. PT ON ALL MONITORS AND EKG COMPLETED. PT REQUESTING FOOD. CALL LIGHT W/I REACH. PT INFORMED HE WILL NEED TO BE EVALUATED BY THE PROVIDER BEFORE ANY FOOD IS PROVIDED. PT VERBALIZES UNDERSTANDING. WARM BLANKET PROVIDED.
[2020-08-07 17:25] VITALS: BP 144/123
--- NOTE | 2020-08-07 17:26 | NUR ---
PT RESTING ON GURNEY. STATES HE IS HUNGRY. DIET ORDERED ONCE CONFIRMED WITH .
--- NOTE | 2020-08-07 17:41 | NUR ---
PER AUBRIE ARAGON TO FEED PT.
[2020-08-07 17:55] LABS: TROPONIN I 0.066 ng/mL (0.000-0.045)
--- NOTE | 2020-08-07 18:33 | NUR ---
Geovanni fernández in ED - 08/07/20 at 1834 by AIMEE MD AT BEDSIDE TO UPDATE PT AND FAMILY ON PLAN OF CARE. PT REQUESTING FLUIDS. VSS. NAD. WILL CONTINUE TO MONITOR
--- NOTE | 2020-08-07 18:41 | NUR ---
RN TO BEDSIDE TO CHECK ON PT. PT NOT IN BED, ALL MONITORS REMOVED, ALL BELONGINGS TAKEN EXCEPT FOR HIS HAT. BATHROOM CHECKED. PT NOT IN RESTROOM. PT ELOPED
== END 2020-08-07 18:43 | disposition left against medical advice (07) ==
LOC: ED 17:18
DX: R07.89 Other chest pain (principal); F10.120 Alcohol abuse with intoxication, uncomplicated; Y90.0 Blood alcohol level of less than 20 mg/100 ml
CPT/HCPCS: 36415; 71045; 84484; 93005; 99285

== ENCOUNTER 2020-08-10 18:47 | Emergency (ER) | payer MEDICARE, MEDICAID ==
[~2020-08-10] VITALS: Ht 167.6 cm; Wt 72.0 kg
[2020-08-10 18:51] VITALS: BP 158/105
--- NOTE | 2020-08-10 19:55 | NUR ---
pt on continues o2 monitor, cheast rise and fall, no distress,
--- NOTE | 2020-08-10 20:30 | NUR ---
notified by charge nurse, PT GANESH HEADLEY ,
== END 2020-08-10 20:50 ==
LOC: ED 19:45
DX: F10.220 Alcohol dependence with intoxication, uncomplicated (principal); Z72.9 Problem related to lifestyle, unspecified; Y90.0 Blood alcohol level of less than 20 mg/100 ml; I10 Essential (primary) hypertension; E11.9 Type 2 diabetes mellitus without complications; F17.200 Nicotine dependence, unspecified, uncomplicated; J45.909 Unspecified asthma, uncomplicated
CPT/HCPCS: 99283

== ENCOUNTER 2020-08-14 18:01 | Emergency (ER) | payer MEDICARE, MEDICAID ==
[~2020-08-14] VITALS: Ht 167.6 cm; Wt 73.9 kg
[2020-08-14 20:21] VITALS: BP 115/72
== END 2020-08-14 20:42 | disposition home or self-care (01) ==
LOC: ED 19:00
DX: M94.0 Chondrocostal junction syndrome [Tietze] (principal); R07.89 Other chest pain; R00.0 Tachycardia, unspecified; Z59.0 Homelessness; I10 Essential (primary) hypertension; E11.9 Type 2 diabetes mellitus without complications; J45.909 Unspecified asthma, uncomplicated; F17.200 Nicotine dependence, unspecified, uncomplicated
CPT/HCPCS: 71045; 93005; 99283

== ENCOUNTER 2020-12-06 02:35 | Emergency (ER) | payer MEDICARE, MEDICAID ==
[~2020-12-06] VITALS: Ht 167.6 cm; Wt 75.0 kg
[~2020-12-06 02:35] MED LIST changes: -LISI40TA PO; +LISI40TA9 PO
[2020-12-06 02:37] VITALS: BP 138/97
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
== END 2020-12-06 03:13 | disposition home or self-care (01) ==
LOC: ED 03:07
DX: R03.0 Elevated blood-pressure reading, without diagnosis of hypertension (principal); F10.129 Alcohol abuse with intoxication, unspecified; R94.31 Abnormal electrocardiogram [ECG] [EKG]; Z72.9 Problem related to lifestyle, unspecified; I10 Essential (primary) hypertension; E11.9 Type 2 diabetes mellitus without complications; Y90.0 Blood alcohol level of less than 20 mg/100 ml
CPT/HCPCS: 93005; 99283